=== PATIENT | male | born 1965 | race Caucasian/White ===

== ENCOUNTER 2017-12-11 14:02 | Emergency (ER) | payer OTHER ==
[~2017-12-11] VITALS: Ht 172.7 cm; Wt 75.9 kg
[2017-12-11 14:42] VITALS: BP 151/74; PULSE 53; RESP 20; TEMP 98.5; O2SAT 100
[2017-12-11] MEDS ORDERED: CHLO7.5 PO (14:58)
[2017-12-11] MEDS ORDERED: TETANUS/DIPHTHERIA TOXOID ADULT 0.5 ML VIAL IM ONE (15:15)
--- NOTE | 2017-12-11 15:16 | PD ---
HPI Chief Complaint: Head Injury Time Seen by Provider: 14:58 Travel History International Travel<30 days: No Contact w/Intl Traveler<30days: No Traveled to known affect area: No History of Present Illness HPI 52yo M with no PMH presents to the ED with c/o laceration above right eyebrow s/ p slip and fall on boat slip at 12pm today. Said he face planted and denies any LOC. Denies any headache, visual changes, chest pain, sob, n/v, abdominal pain, focal weakness or numbness. Denies any anticoagulation. Denies not remember last tetanus. PFSH Past Medical History Medical History: Denies Significant Hx Tetanus Vaccination: Unknown Influenza Vaccination: No Past Surgical History Oral Surgery: Yes (CYST REMOVE FROM TONGUE) Other Surgery: Yes (RHINOPLASTY) Social History Alcohol Use: No Tobacco Use: No Substance Use: No Allergies-Medications (Allergen,Severity, Reaction): Coded Allergies: influenza A (H1N1) virus vaccine m-mac-split 2008 (Verified Allergy, Severe, Swelling, 12/11/17) SWELLING OF THROAT AND EYES erythromycin base (Verified Adverse Reaction, Unknown, Nausea/Vomiting, ) Reported Meds & Prescriptions Reported Meds & Active Scripts Active Reported Tranxene T (Clorazepate Dipotassium) 7.5 Mg Tab 3.75 Mg PO DAILY PRN Review of Systems Except as stated in HPI: all other systems reviewed are Neg Physical Exam Narrative GENERAL: 52yo M not in distress. SKIN: Focused skin assessment warm/dry. HEAD: +2cm superficial laceration above right eyebrow. Abrasion in right chin. MOUTH: Ecchymoses in right inner upper lip. No loose teeth. EYES: Pupils equal and round at 4mm bilaterally. EOMI. No periorbital ecchymoses. ENT: No septal hematoma. No hemotympanum. NECK: Trachea midline. No JVD. CARDIOVASCULAR: Regular rate and rhythm. No murmur appreciated. RESPIRATORY: No accessory muscle use. Clear to auscultation. Breath sounds equal bilaterally. GASTROINTESTINAL: Abdomen soft, non-tender, nondistended. MUSCULOSKELETAL: Right knee: +Abrasion. FROM in right knee. Sensation intact. Distal pulses intact. NEUROLOGICAL: Awake and alert. No obvious cranial nerve deficits. Motor grossly within normal limits. Normal speech. PSYCHIATRIC: Appropriate mood and affect; insight and judgment normal. Data Data Last Documented VS Vital Signs Date Time Temp Pulse Resp B/P (MAP) Pulse Ox O2 Delivery O2 Flow Rate FiO2 12/11/17 14:42 98.5 53 20 151/74 (99) 100 Orders Orders Tetanus/Diphtheria Tox Adult (Tetanus/Di (12/11/17 15:15) MDM Medical Decision Making Medical Screen Exam Complete: Yes Emergency Medical Condition: Yes Differential Diagnosis Forehead laceration Narrative Course 52yo M here with right forehead evaluation after slip and fall. Pt is only worried about the laceration and denies any other complaints. Does not want any pain medication. Will update tetanus. Pt has no complaints and is AAOx3 with no focal neurologic deficits or LOC. Do not feel that imaging is needed at this time. Pt would like to have it dermabond instead of sutures and since it is superficial and well approximated, will dermabond. Wound irrigated and explored. Wound closed with dermabond and cover with steri strip. Return precautions given. Procedures Procedure Narrative LACERATION LOCATION: Right forehead LENGTH: 2cm NUMBER OF STITCHES/AN: Dermabond. REPAIR: The wound was copiously irrigated and explored without evidence of foreign body, tendon injury or neurovascular injury. The wound was closed using dermabond. This was a single layer repair. Steri strip placed over it. The patient was advised to keep the dressing clean and dry. Patient tolerated the procedure well. Diagnosis Primary Impression: Head injury Qualified Codes: S09.90XA - Unspecified injury of head, initial encounter Patient Instructions: General Instructions Departure Forms: Tests/Procedures Additional Instructions: Please follow up with your primary care physician. Return to the ED if symptoms worsen. Med/Other Pt SpecificInfo: No Change to Meds Disposition: 01 DISCHARGE HOME Condition: Stable Barb Hernandez DO Dec 11, 2017 15:16
[2017-12-11 16:32] VITALS: BP 150/76
== END 2017-12-11 16:33 | disposition home or self-care (01) ==
LOC: PHED 14:02
DX: S01.81XA Laceration without foreign body of other part of head, initial encounter (principal); W01.0XXA Fall on same level from slipping, tripping and stumbling without subsequent striking against object, initial encounter; Z23 Encounter for immunization; Z88.1 Allergy status to other antibiotic agents
CPT/HCPCS: 12011; 90471; 90714